=== PATIENT | male | born 1995 | race Caucasian/White ===

== ENCOUNTER 2018-11-06 11:17 | Emergency (ER) | payer OTHER ==
[2018-11-06 12:20] VITALS: BP 135/84; PULSE 96; TEMP 98.4; BMI 38.9
[2018-11-06] MEDS ORDERED: KETOROLAC TROMETHAMINE 30 MG/1 ML VIAL IVPUSH ONE (14:33)
[2018-11-06] MEDS ORDERED: KETOROLAC TROMETHAMINE 30 MG/1 ML VIAL ONE (14:38)
[2018-11-06 16:13] LABS: BASO % 0.2 % (0-2.0); EOS % 1.5 % (0-4.5); HEMATOCRIT 46.8 % (35.4-49); HEMOGLOBIN 15.7 GM/dL (11.7-16.9); LYMPH % 25.9 % (8-40); MCHC 33.6 g/dl (32.0-35.9); MEAN CELL VOLUME 86.2 fl (80-96); MEAN PLT VOLUME 8.3 fl (7.5-11.1); MONO % 8.3 % (3.8-10.2); NEUT % 64.1 % (42.8-82.8); PLATELET COUNT 274 K/MM3 (134-434); RBC 5.43 M/mm3 (4.00-5.60); RDW 13.5 % (11.9-15.9); WHITE BLOOD COUNT 10.9 K/mm3 (4.0-10.0)
--- NOTE | 2018-11-06 16:32 | PDOC ---
History of Present Illness - General Chief Complaint: Chest Pain Stated Complaint: CHEST PAIN Time Seen by Provider: 11/06/18 12:52 History Source: Patient Exam Limitations: No Limitations - History of Present Illness Initial Comments: 11/06/18 16:44 23 y/o male presents to the ED with c/o left sided chest pressure x 3 days without aggravating/alleviating factors. pt is a diabetic, has elevated cholestreol, along without htn. Pt is pending a gastric sleeve next month to be performed by Dr. Apodaca. Pt had a complete physical along with an echo 2 weeks with no abnormalities. Pt denies sob, lower extremity edema, cough, sob, recent sx, or travel. Presenting Symptoms: Chest Pain Timing/Duration: reports: constant Severity/Quality: reports: mild Location: reports: substernal Chest Pain Radiation: reports: no radiation Activities at Onset: reports: none Prior Chest Pain/Cardiac Workup: reports: Echocardiography (last month ( preop)) Associated Symptoms: Yes: Chest Pain/pressure Past History - Travel Traveled outside of the country in the last 30 days: No Close contact w/someone who was outside of country & ill: No - Past Medical History Allergies/Adverse Reactions: Allergies Allergy/AdvReac Type Severity Reaction Status Date / Time No Known Allergies Allergy Verified 11/06/18 12:17 COPD: No - Suicide/Smoking/Psychosocial Hx Smoking History: Unknown if ever smoked Hx Alcohol Use: No Drug/Substance Use Hx: No Patient Lives Alone: No Lives with/in: parents Review of Systems - Review of Systems Able to Perform ROS?: No Is the patient limited Par[place]ayan proficient: No Constitutional: No: Symptoms Reported HEENTM: No: Symptoms Reported Respiratory: No: Symptoms reported Cardiac (ROS): Yes: Chest Pain ABD/GI: No: Symptoms Reported : No: Symptoms Reported Musculoskeletal: No: Symptoms Reported Integumentary: No: Symptoms Reported Neurological: No: Symptoms reported *Physical Exam - Vital Signs Last Vital Signs Temp Pulse Resp BP Pulse Ox 98.4 F 96 H 16 135/84 99 11/06/18 11:25 11/06/18 11:25 11/06/18 11:25 11/06/18 11:25 11/06/18 11:25 - Physical Exam General Appearance: Yes: Nourished, Appropriately Dressed. No: Apparent Distress HEENT: positive: Pharynx Normal. negative: Pale Conjunctivae Neck: positive: Normal Thyroid, Supple Respiratory/Chest: positive: Chest Tender, Lungs Clear. negative: Normal Breath Sounds, Respiratory Distress Cardiovascular: positive: Regular Rhythm, Regular Rate. negative: Murmur Gastrointestinal/Abdominal: positive: Soft. negative: Tenderness Musculoskeletal: negative: CVA Tenderness Extremity: positive: Normal Capillary Refill. negative: Pedal Edema Integumentary: positive: Normal Color, Warm, Moist Neurologic: positive: Normal Mood/Affect, Motor Strength 5/5 (ambulatory) Heart Score/ECG Review - ECG Intrepretation Rhythm: Regular Rhythm (rate 92, nsr, no st elevation or depression) Moderate Sedation - Procedure Monitoring Vital Signs: Procedure Monitoring Vital Signs Temperature 98.4 F 11/06/18 11:25 Pulse Rate 96 H 11/06/18 11:25 Respiratory Rate 16 11/06/18 11:25 Blood Pressure 135/84 11/06/18 11:25 O2 Sat by Pulse Oximetry (%) 99 11/06/18 11:25 ED Treatment Course - LABORATORY CBC & Chemistry Diagram: 11/06/18 14:44 - ADDITIONAL ORDERS Additional order review: Laboratory Results 11/06/18 11/06/18 14:44 14:44 D-Dimer < 215 Creatine Kinase 120 Troponin I < 0.02 11/06/18 14:44 RBC 5.43 MCV 86.2 MCHC 33.6 RDW 13.5 MPV 8.3 Neutrophils % 64.1 Lymphocytes % 25.9 Monocytes % 8.3 Eosinophils % 1.5 Basophils % 0.2 - RADIOLOGY Radiology Studies Ordered: Category Date Time Status CHEST PA & LAT [RAD] Stat Radiology 11/06/18 14:33 Completed - Medications Given in the ED: ED Medications Discontinued Medications Generic Name Dose Route Start Last Admin Trade Name Freq PRN Reason Stop Dose Admin Ketorolac Tromethamine 30 mg 11/06/18 14:33 11/06/18 14:37 Toradol Injection - IVPUSH 11/06/18 14:34 30 mg ONCE ONE Administration Medical Decision Making - Medical Decision Making 11/06/18 14:48 CC: lscp x 2 days, no other complaints exam: no reproducible cp, reviexed labs and echo report completed 2 weeks ago which were - no emergent findings Plan: cbc, d- dimer, cardiac profile, ekg, and cxr 11/06/18 16:50 Laboratory Tests 11/06/18 11/06/18 14:44 14:44 WBC 10.9 H Hgb 15.7 Hct 46.8 Plt Count 274 MPV 8.3 Absolute Neuts (auto) 7.0 Neutrophils % 64.1 Lymphocytes % 25.9 Monocytes % 8.3 Eosinophils % 1.5 Basophils % 0.2 Nucleated RBC % 0 Creatine Kinase 120 Troponin I < 0.02 D- dimer pending. Pt states feeling better 11/06/18 17:23 Laboratory Tests 11/06/18 14:44 D-Dimer < 215 *DC/Admit/Observation/Transfer Diagnosis at time of Disposition: Chest pain - Discharge Dispostion Disposition: HOME Condition at time of disposition: Good - Referrals - Patient Instructions Printed Discharge Instructions: DI for Atypical Chest Pain Additional Instructions: Please continue to take medication as previously prescribed, Take tylenol for pain. Return to the ED if symptoms worsen - Post Discharge Activity Forms/Work/School Notes: Back to Work
--- NOTE | 2018-11-07 18:04 | EKG ---
Test Reason : Blood Pressure : / mmHG Vent. Rate : 087 BPM Atrial Rate : 087 BPM P-R Int : 164 ms QRS Dur : 090 ms QT Int : 356 ms P-R-T Axes : 119 134 172 degrees QTc Int : 428 ms SUSPECT ARM LEAD REVERSAL, INTERPRETATION ASSUMES NO REVERSAL NORMAL SINUS RHYTHM RIGHT AXIS DEVIATION INFERIOR INFARCT , AGE UNDETERMINED ABNORMAL ECG NO PREVIOUS ECGS AVAILABLE Confirmed by MD ROBERTO CARLOS, URMILA ([id number]) on 11/07/2018 6:04:42 PM Referred By: Confirmed By:URMILA AZEVEDO MD
== END 2018-11-06 17:27 | disposition home or self-care (01) ==
LOC: JER 11:17
PROC: 3E0333Z Introduction of Anti-inflammatory into Peripheral Vein, Percutaneous Approach (ICD-10-PCS; principal; 2018-11-06)
DX: R07.89 Other chest pain (principal); E11.9 Type 2 diabetes mellitus without complications; E78.00 Pure hypercholesterolemia, unspecified
CPT/HCPCS: 36415; 71046-TC-FY; 82550; 84484; 85025; 85379; 93005; 93010; 96374; 99283-25

== ENCOUNTER 2018-12-14 09:59 | Inpatient (IN) | payer OTHER ==
[2018-12-07 16:20] VITALS: BMI 35.6
--- NOTE | 2018-12-14 10:32 | HP ---
Admitting History and Physical - Admission Chief Complaint: Morbid obesity History Source: Patient Limitations to Obtaining History: No Limitations - Past Medical History Cardiovascular: Yes: HTN, Hyperlipdemia Pulmonary: Yes: Sleep Apnea Endocrine: Yes: Diabetes Mellitus - Smoking History Smoking history: Current some day smoker Have you smoked in the past 12 months: Yes - Alcohol/Substance Use Hx Alcohol Use: Yes (rarely) Home Medications - Allergies Allergies/Adverse Reactions: Allergies Allergy/AdvReac Type Severity Reaction Status Date / Time shellfish derived Allergy Severe Swelling Verified 12/07/18 16:07 - Home Medications Home Medications: Ambulatory Orders Metformin HCl [Glucophage] 1,000 mg PO BID 12/07/18 Famotidine [Pepcid] 20 mg PO BID #60 tablet 12/14/18 Oxycodone HCl/Acetaminophen [Percocet 5-325 mg Tablet] 1 - 2 tab PO Q6H #28 tab MDD 4 12/14/18 Family Disease History - Family Disease History Family History: Unremarkable Review of Systems - Review of Systems Constitutional: denies: Chills, Fever HENT: reports: No Symptoms Neck: reports: No Symptoms Cardiovascular: reports: No Symptoms Respiratory: reports: No Symptoms Gastrointestinal: reports: No Symptoms. denies: Abdominal Pain Neurological: reports: No Symptoms Pain Intensity: 0 Physical Examination Constitutional: Yes: No Distress HENT: Yes: WNL Neck: Yes: WNL Cardiovascular: Yes: WNL Respiratory: Yes: Regular Gastrointestinal: Yes: Soft, Abdomen, Obese. No: Tenderness Neurological: Yes: Alert, Oriented Problem List - Problems (1) Morbid obesity due to excess calories Code(s): E66.01 - MORBID (SEVERE) OBESITY DUE TO EXCESS CALORIES (2) Hypertension Code(s): I10 - ESSENTIAL (PRIMARY) HYPERTENSION Qualifiers: Hypertension type: unspecified Qualified Code(s): I10 - Essential (primary ) hypertension (3) Sleep apnea with use of continuous positive airway pressure (CPAP) Code(s): G47.30 - SLEEP APNEA, UNSPECIFIED (4) Obstructive sleep apnea Code(s): G47.33 - OBSTRUCTIVE SLEEP APNEA (ADULT) (PEDIATRIC) (5) Diabetes mellitus type 2 in obese Code(s): E11.69 - TYPE 2 DIABETES MELLITUS WITH OTHER SPECIFIED COMPLICATION; E66.9 - OBESITY, UNSPECIFIED (6) Hyperlipidemia Code(s): E78.5 - HYPERLIPIDEMIA, UNSPECIFIED Qualifiers: Hyperlipidemia type: unspecified Qualified Code(s): E78.5 - Hyperlipidemia , unspecified Assessment/Plan Laparoscopic possible open vertical sleeve gastrectomy possible liver biopsy possible upper endoscopy
[2018-12-14] MEDS ORDERED: PROPOFOL 20 ML ONE (11:38)
[2018-12-14] MEDS ORDERED: MIDAZOLAM HCL 2 MG/2 ML SINGLE DOSE VIAL ONE (11:39)
[2018-12-14] MEDS ORDERED: ROCURONIUM BROMIDE 50 MG/5 ML VIAL ONE (11:41)
[2018-12-14] MEDS ORDERED: fentaNYL CITRATE 250 MCG/5 ML VIAL ONE (11:41)
[2018-12-14] MEDS ORDERED: SUCCINYLCHOLINE CHLORIDE 200 MG/10 ML VIAL ONE (11:41)
[2018-12-14] MEDS ORDERED: LIDOCAINE HCL 2% 100 MG/5 ML DISP.SYRIN ONE (11:42)
[2018-12-14] MEDS ORDERED: BUPIVACAINE HCL/PF 2.5 MG/ML - 30 ML VIAL IJ ONE (13:36)
[2018-12-14] MEDS ORDERED: BUPIVACAINE HCL/PF 0.25% (2.5MG/ML) 10 ML VIAL IJ ONE (14:43)
[2018-12-14] MEDS ORDERED: NEOSTIGMINE METHYLSULFATE 0.5 MG/ML - 10 ML MDV ONE (14:47)
[2018-12-14] MEDS ORDERED: GLYCOPYRROLATE 0.2 MG/1 ML VIAL ONE ×3 (14:47)
[2018-12-14] MEDS ORDERED: METOCLOPRAMIDE HCL INJECTION 10 MG/2 ML VIAL ONE (14:55)
[2018-12-14] MEDS ORDERED: FAMOTIDINE 20 MG/50 ML IVPB 20 MG/50 ML MG IVPB ONE (14:55)
[2018-12-14] MEDS ORDERED: ACETAMINOPHEN INJECTION 100 ML IVPB ONE (14:55)
--- NOTE | 2018-12-14 14:58 | OP ---
Operative Note - Note: Operative Date: 12/14/18 Pre-Operative Diagnosis: Morbid obesity. hypertension. obstructive sleep apnea. Hyperlipidemia. Diabetes mellitus type 2 Operation: Laparoscopic vertical sleeve gastrectomy. Laparoscopic wedge liver biopsy Post-Operative Diagnosis: Same as Pre-op (as well as hepatomegaly) Surgeon: Domingo Apodaca Causticiser: Mil Merida Anesthesia: General Specimens Removed: Greater curvature of stomach. Liver biopsy Estimated Blood Loss (mls): 30 Drains & Tubes with Location: 36 fr bougie Operative Report Dictated: Yes
[2018-12-14] MEDS ORDERED: SODIUM CHLORIDE 1,000 ML IV SCH (15:00)
[2018-12-14] MEDS: ACETAMINOPHEN 1000 MG/100 ML VIAL (NON FORMULARY) IVPB SCH ×2 (15:15→21:07)
[2018-12-14] MEDS: METOCLOPRAMIDE HCL INJECTION 10 MG/2 ML VIAL IVPUSH SCH ×2 (15:20→21:07)
[2018-12-14] MEDS ORDERED: FAMOTIDINE 20 MG PREMIXED IVPB IVPB ONE (15:30)
[2018-12-14 16:02] LABS: HEMATOCRIT 45.1 % (35.4-49); HEMOGLOBIN 15.1 GM/dl (11.7-16.9); MCH 29.1 pg (25.7-33.7); MCHC 33.5 g/dl (32.0-35.9); MEAN CELL VOLUME 86.7 fl (80-96); MEAN PLT VOLUME 7.9 fl (7.5-11.1); PLATELET COUNT 343 K/MM3 (134-434); RBC 5.21 M/mm3 (4.00-5.60); RDW 12.4 % (11.9-15.9); WHITE BLOOD COUNT 23.7 K/mm3 (4.0-10.8)
[2018-12-14] MEDS: INSULIN SLIDING SCALE (NOVOLOG) 1 VIAL SQ SCH (16:07)
[2018-12-14 16:10] LABS: ALBUMIN 3.9 g/dl (3.4-5.0); ALK PHOS 52 U/L (45-117); ANION GAP 14 MMOL/L (8-16); BILIRUBIN,TOTAL 0.5 mg/dl (0.2-1); BLOOD UREA NITROGEN 12 mg/dl (7-18); CALCIUM 8.7 mg/dl (8.5-10); CHLORIDE 100 mmol/L (98-107); CO2 20 mmol/L (21-32); CREATININE 0.7 mg/dl (0.55-1.3); GLUCOSE,RANDOM 272 mg/dl (74-106); POTASSIUM 3.8 mmol/L (3.5-5.1); SGOT/AST 176 U/L (15-37); SGPT/ALT 243 U/L (13-61); SODIUM 134 mmol/L (136-145); TOT PROT 7.7 g/dl (6.4-8.2)
[2018-12-14] MEDS ORDERED: HYDROmorphone HCL CARPU-JECT 1 MG/1 ML DISP.SYRIN ONE (16:40)
[2018-12-14] MEDS: HYDROmorphone HCL CARPU-JECT 2 MG/1 ML DISP.SYRIN IVPB PRN (16:52)
--- NOTE | 2018-12-14 20:44 | SPEC ---
DATE OF OPERATION: 12/14/2018 SURGEON: Domingo Apodaca MD COMPUTER PATTERNMAKER: Mil Merida MD PREOPERATIVE DIAGNOSES: 1. Morbid obesity. 2. Hypertension. 3. Diabetes mellitus, type 2. 4. Hyperlipidemia. 5. Sleep apnea. POSTOPERATIVE DIAGNOSES: 1. Morbid obesity. 2. Hypertension. 3. Diabetes mellitus, type 2. 4. Hyperlipidemia. 5. Sleep apnea. 6. Hepatomegaly. PROCEDURES: 1. Diagnostic laparoscopy. 2. Laparoscopic vertical sleeve gastrectomy. 3. Laparoscopic wedge liver biopsy. SPECIMEN: 1. Greater curvature of the stomach. 2. Liver biopsy. ESTIMATED BLOOD LOSS: 3 mL. DRAINS: None. ANESTHESIA: GET. BOUGIE: Size 36-Mexican. REASON FOR PROCEDURE: This is a 23-year-old male who presented to the office for weight loss options. After describing different options, he has decided to proceed with a laparoscopic, possible open vertical sleeve gastrectomy, possible liver biopsy, and upper endoscopy. RISKS AND BENEFITS: After describing the different options for weight loss management, the patient decided to proceed with a laparoscopic, possible open vertical sleeve gastrectomy. The patient was seen by the respective subspecialties and cleared for surgery. The risks and benefits of the procedure were explained. These included bleeding, infection, hernia, CT, DVT, PE, injury to surrounding structures including the liver, colon, bowel, spleen, esophagus, vessel injury, nerve injury, weight regain, gastric leak, staple line leak, sleeve leak, obstruction, vitamin deficiency, hair loss and as some of the possible complications. The patient understood and signed informed consent. DESCRIPTION OF PROCEDURE: The patient was placed supine on the operating room table. The patient underwent general endotracheal intubation. The arms were brought out at 90 degrees and secured. A footboard was placed and the legs were secured laterally with padding. The abdomen was prepped and draped in the usual sterile fashion. A timeout was performed. An incision was made in the left upper quadrant and a Veress needle inserted. Pneumoperitoneum was established. Subsequently, the Veress needle was removed and a 5-mm trocar was placed under direct visualization with the laparoscope. The laparoscopic camera was then inserted and inspection of the abdominal cavity was performed. An incision was then made in the supraumbilical area and a 15-mm trocar was placed under direct visualization. A 5-mm trocar was then placed in the right upper quadrant and a 5-mm trocar was placed below the left subcostal margin. A stab wound was made in the subxiphoid area and a Felicia clamp inserted and removed to dilate the tract. A Ford liver retractor was inserted. The post was secured at the bedside by the nursing staff. The patient was placed in steep reverse Trendelenburg position and the Ford liver retractor was used to secure the liver towards the anterior abdominal wall. The pylorus was identified and 6 cm proximal to it, the lesser sac was entered using the LigaSure device. All lateral attachments to the greater curvature of the stomach, including the short gastric vessels, were ligated using the LigaSure device toward the gastrosplenic and gastrophrenic ligaments. Once this was done in its entirety, it was confirmed that all tubes within the nasal or oropharyngeal cavity, including a temperature probe, was removed by Anesthesia. The bougie was then inserted by Anesthesia. Transection of the stomach was then begun staying adjacent to the bougie but away from the angularis. Transection of the stomach was performed near the portion of the stomach where the lesser sac was entered. Two laparoscopic Endo-VALENTINA black tessa were used at this location. Laparoscopic Endo [place] purple staple loads were then used for the remainder of the transection until the greater curvature of the stomach was fully transected. This was done staying close to the bougie. Care was taken to stay away from the angle of His cephalad. The staple line was then inspected. Hemostasis was identified. A leak test was then performed. It was clamped distally to the staple line. Irrigation solution was placed in the left upper quadrant and air was insufflated by Anesthesia into the sleeve. No leaks were identified. No obstruction was identified. This was done through the entirety of the staple line. In addition, an upper endoscopy was performed. The endoscope was placed into the patients mouth and the entirety of the esophagus, GE junction, gastric pouch and staple line were inspected. No obstruction or leak was noted. The stomach was suctioned and the endoscope removed fully intact. At this point, the irrigation solution was suctioned and again, hemostasis was noted. A wedge liver biopsy was then performed. The left lobe of the liver was identified and a portion of the edge was grasped. Using electrocautery, a wedge of the liver was excised. This was removed and sent off the field as specimen. Hemostasis at the site of the wedge liver biopsy was attained using electrocautery. The 15-mm supraumbilical trocar was then removed and the greater curvature specimen removed from the site using a sponge stick jackson. The specimen was inspected and a Veress needle inserted. The specimen insufflated adequately and no leak was identified. The staple line was noted to be intact. A Marcellus-Karolyn device was then used to close the fascia with a 0 Vicryl suture at the site. Again, hemostasis was noted. The Ford liver retractor was then removed under direct visualization. Pneumoperitoneum was desufflated and the fascial sutures were secured. Hemostasis was noted at all incision sites and Marcaine was injected at all incision sites. All incision sites were closed using 4-0 Biosyn. Sterile dressings were applied. The patient tolerated the procedure well and was transferred to the recovery room in stable condition. The patient was transferred to telemetry for further monitoring. Nadia [id number]
[2018-12-14] MEDS: FAMOTIDINE 20 MG/50 ML IVPB 20 MG/50 ML MG IVPB SCH (21:07)
[2018-12-14] MEDS: ONDANSETRON 4 MG/2 ML VIAL IVPUSH SCH ×2 (21:07→23:00)
[2018-12-14] MEDS: ENOXAPARIN NA (PORCINE) 40 MG/0.4 ML DISP.SYRIN SQ SCH (21:08)
[2018-12-14] MEDS ORDERED: ENOXAPARIN NA (PORCINE) 40 MG/0.4 ML DISP.SYRIN SQ SCH ×2 (22:00)
[2018-12-15] MEDS: ACETAMINOPHEN 1000 MG/100 ML VIAL (NON FORMULARY) IVPB SCH ×3 (03:00→09:14)
[2018-12-15] MEDS: METOCLOPRAMIDE HCL INJECTION 10 MG/2 ML VIAL IVPUSH SCH ×4 (03:00→14:00)
[2018-12-15] MEDS: ONDANSETRON 4 MG/2 ML VIAL IVPUSH SCH ×5 (03:00→14:00)
[2018-12-15] MEDS: INSULIN SLIDING SCALE (NOVOLOG) 1 VIAL SQ SCH ×3 (06:32→11:27)
[2018-12-15] MEDS ORDERED: INSULIN (NOVOLOG) ASPART 100 UNITS/ML 10ML VIAL ONE ×2 (06:48→11:24)
[2018-12-15 07:00] LABS: HEMATOCRIT 43.2 % (35.4-49); HEMOGLOBIN 14.7 GM/dl (11.7-16.9); MCH 29.1 pg (25.7-33.7); MEAN CELL VOLUME 85.5 fl (80-96); MEAN PLT VOLUME 7.7 fl (7.5-11.1); PLATELET COUNT 290 K/MM3 (134-434); RBC 5.05 M/mm3 (4.00-5.60); RDW 12.2 % (11.9-15.9); WHITE BLOOD COUNT 18.4 K/mm3 (4.0-10.8)
[2018-12-15 07:15] LABS: ALBUMIN 4.1 g/dl (3.4-5.0); ALK PHOS 48 U/L (45-117); ANION GAP 10 MMOL/L (8-16); BILIRUBIN,TOTAL 0.9 mg/dl (0.2-1); BLOOD UREA NITROGEN 8 mg/dl (7-18); CALCIUM 8.9 mg/dl (8.5-10); CHLORIDE 97 mmol/L (98-107); CO2 24 mmol/L (21-32); CREATININE 0.6 mg/dl (0.55-1.3); GLUCOSE,RANDOM 254 mg/dl (74-106); SGOT/AST 74 U/L (15-37); SGPT/ALT 197 U/L (13-61); SODIUM 131 mmol/L (136-145); TOT PROT 7.8 g/dl (6.4-8.2)
[2018-12-15] MEDS: HYDROmorphone HCL CARPU-JECT 2 MG/1 ML DISP.SYRIN IVPB PRN (07:50)
[2018-12-15] MEDS: FAMOTIDINE 20 MG/50 ML IVPB 20 MG/50 ML MG IVPB SCH (09:12)
[2018-12-15] MEDS: ENOXAPARIN NA (PORCINE) 40 MG/0.4 ML DISP.SYRIN SQ SCH (09:13)
[2018-12-15 13:58] VITALS: BP 144/84; PULSE 86; TEMP 99.2
--- NOTE | 2018-12-15 14:17 | PN ---
Progress Note (short form) - Note Progress Note: POD 1 Pain controlled No nausea Vital Signs Period Temp Pulse Resp BP Sys/Teran Pulse Ox Last 24 Hr 97.9 F-99.2 F 61-96 14-20 141-170/50-93 96-100 Abd soft CBC,CMP WBC 18.4 K/mm3 (4.0-10.8) H 12/15/18 06:30 RBC 5.05 M/mm3 (4.00-5.60) 12/15/18 06:30 Hgb 14.7 GM/dl (11.7-16.9) 12/15/18 06:30 Hct 43.2 % (35.4-49) 12/15/18 06:30 MCV 85.5 fl (80-96) 12/15/18 06:30 MCH 29.1 pg (25.7-33.7) 12/15/18 06:30 MCHC 34.0 g/dl (32.0-35.9) 12/15/18 06:30 RDW 12.2 % (11.9-15.9) 12/15/18 06:30 Plt Count 290 K/MM3 (134-434) 12/15/18 06:30 MPV 7.7 fl (7.5-11.1) 12/15/18 06:30 Sodium 131 mmol/L (136-145) L 12/15/18 06:30 Potassium 4.0 mmol/L (3.5-5.1) 12/15/18 06:30 Chloride 97 mmol/L (98-107) L 12/15/18 06:30 Carbon Dioxide 24 mmol/L (21-32) 12/15/18 06:30 Anion Gap 10 MMOL/L (8-16) 12/15/18 06:30 BUN 8 mg/dl (7-18) 12/15/18 06:30 Creatinine 0.6 mg/dl (0.55-1.3) 12/15/18 06:30 Creat Clearance w eGFR 168.47 (>60) 12/15/18 06:30 POC Glucometer 261 UNITS (80-120) 12/15/18 11:21 Random Glucose 254 mg/dl (74-106) H 12/15/18 06:30 Calcium 8.9 mg/dl (8.5-10) 12/15/18 06:30 Total Bilirubin 0.9 mg/dl (0.2-1) 12/15/18 06:30 AST 74 U/L (15-37) H 12/15/18 06:30 ALT 197 U/L (13-61) H 12/15/18 06:30 Alkaline Phosphatase 48 U/L (45-117) 12/15/18 06:30 Total Protein 7.8 g/dl (6.4-8.2) 12/15/18 06:30 Albumin 4.1 g/dl (3.4-5.0) 12/15/18 06:30 UGI: no leak/obstruction Clears Discharge home Problem List - Problems (1) Morbid obesity due to excess calories Code(s): E66.01 - MORBID (SEVERE) OBESITY DUE TO EXCESS CALORIES (2) Hypertension Code(s): I10 - ESSENTIAL (PRIMARY) HYPERTENSION Qualifiers: Hypertension type: unspecified Qualified Code(s): I10 - Essential (primary ) hypertension (3) Sleep apnea with use of continuous positive airway pressure (CPAP) Code(s): G47.30 - SLEEP APNEA, UNSPECIFIED (4) Obstructive sleep apnea Code(s): G47.33 - OBSTRUCTIVE SLEEP APNEA (ADULT) (PEDIATRIC) (5) Diabetes mellitus type 2 in obese Code(s): E11.69 - TYPE 2 DIABETES MELLITUS WITH OTHER SPECIFIED COMPLICATION; E66.9 - OBESITY, UNSPECIFIED (6) Hyperlipidemia Code(s): E78.5 - HYPERLIPIDEMIA, UNSPECIFIED Qualifiers: Hyperlipidemia type: unspecified Qualified Code(s): E78.5 - Hyperlipidemia , unspecified
[2018-12-15] MEDS ORDERED: SODIUM CHLORIDE 1,000 ML IV SCH (14:30)
--- NOTE | 2018-12-16 15:40 | PATH ---
Surgical Pathology Report Patient Name: CHRISTIANO MAI Med. Rec. #: [id number] /Age/Gender: 1995 (Age: 23) / M Account: [id number] Location: [facility] Taken: 12/14/2018 Received: 12/14/2018 Reported: 12/16/2018 Physicians: Domingo Apodaca M.D. Specimen(s) Received A: GREATER CURVATURE STOMACH B: LIVER BIOPSY Clinical History Morbid obesity Final Diagnosis A. GREATER CURVATURE OF STOMACH, EXCISION: PORTION OF STOMACH SHOWING MODERATE CHRONIC GASTRITIS. IMMUNOSTAIN SHOWS NUMEROUS H.PYLORI ORGANISMS. B. LIVER, BIOPSY: MARKED STEATOSIS (~70%) AND MILD STEATOHEPATITIS (GRADE 1). TRICHROME STAIN SHOWS NO APPRECIABLE INCREASE IN FIBROSIS. IRON STAIN IS NEGATIVE. Electronically Signed Germaine Kaplan M.D. Gross Description A. Received in formalin, labeled "greater curvature of stomach," is a 162 gram, 23.0 x 3.8 x 3.5 cm. portion of stomach with a stapled margin of resection. The serosa is rodriguez-rao with minimal attached fat. The mucosa is rodriguez-pink with a with focally flattened folds. No mucosal masses are identified. Power Tool Repairer sections are submitted in one cassette. B. Received in formalin labeled "liver biopsy," is a 4.3 x 1.5 x 1.2 cm rodriguez portion of soft tissue, consistent with a portion of liver. Power Tool Repairer sections are submitted in one cassette. /12/15/2018 saudi12/15/2018
== END 2018-12-15 15:22 | disposition home or self-care (01) | DRG 403 ==
LOC: FM/S 09:59
PROVIDERS: ADMIT Surgery; ATTEND Surgery
PROC: 0DJ08ZZ Inspection of Upper Intestinal Tract, Via Natural or Artificial Opening Endoscopic (ICD-10-PCS; 2018-12-14)
PROC: 0DB64Z3 Excision of Stomach, Percutaneous Endoscopic Approach, Vertical (ICD-10-PCS; principal; 2018-12-14 13:46)
PROC: 0FB24ZX Excision of Left Lobe Liver, Percutaneous Endoscopic Approach, Diagnostic (ICD-10-PCS; 2018-12-14 13:46)
DX: E66.01 Morbid (severe) obesity due to excess calories (principal); Z68.34 Body mass index [BMI] 34.0-34.9, adult; I10 Essential (primary) hypertension; E78.5 Hyperlipidemia, unspecified; G47.30 Sleep apnea, unspecified; E11.9 Type 2 diabetes mellitus without complications; F17.200 Nicotine dependence, unspecified, uncomplicated; R16.0 Hepatomegaly, not elsewhere classified
CPT/HCPCS: 36415; 74241-TC-FY; 80053; 82962; 85027; 88305-TC; 88313-TC; 88342-TC; 94760; J0131